=== PATIENT | female | born 2000 | race African-American/Black ===

== ENCOUNTER 2020-03-27 22:30 | Emergency (ER) | payer SELFPAY ==
[~2020-03-27] VITALS: Ht 165.1 cm; Wt 50.8 kg
[2020-03-27 22:42] VITALS: BP 110/68
--- NOTE | 2020-03-27 22:44 | NUR ---
ED Nurse Note: Patient walked into ED from home d/t sore throat that radiates to left ear and left head, started 1 week ago. Sore throat aching /. Patient aao x 4 and ambulatory with steady gait. Patient stable upon assessment.
--- NOTE | 2020-03-27 22:50 | NUR ---
ED Nurse Note: ERMD at bedside.
[2020-03-27] MEDS ORDERED: PSEUDOEPHEDRINE60 MG PO (22:57)
[2020-03-27] MEDS ORDERED: ZITHROMAX250 MG ORAL (22:57)
--- NOTE | 2020-03-27 22:58 | Emergency Room Report ---
History of Present Illness General Chief Complaint: Sore Throat Source: Patient Present Illness [facility] This a 19-year-old female with no past medical history patient presents with chief complaint of sore throat and ear pain. Onset for last few days. Has slight cough and congestion. Nose is stuffy. Most her pain is in the left ear and rating to her head and jaw area. Worse with inspiration. Worse with lying flat. Has some chest tightness and shortness of breath because of it. Denies any other complaint. Pain is 7 out of 10. Worse with coughing and swallowing. Better with rest. Allergies: Coded Allergies: No Known Allergies (Unverified , 03/27/20) COVID-19 Screening Contact w/high risk pt: No Recent Travel to affected area: No Experienced COVID-19 symptoms?: No Patient History Past Medical History: see triage record, old chart reviewed Past Surgical History: none Pertinent Family History: none Social History: Denies: smoking Last Menstrual Period: currently Now: No Immunizations: other Reviewed Nursing Documentation: PMH: Agreed; PSxH: Agreed Nursing Documentation-PMH Past Medical History: No History, Except For Review of Systems Eye: Denies: eye pain, blurred vision ENT: Reports: ear pain, nose congestion; Denies: throat swelling Respiratory: Reports: cough; Denies: shortness of breath Cardiovascular: Denies: chest pain, palpitations Gastrointestinal: Denies: abdominal pain, diarrhea, nausea, vomiting Musculoskeletal: Denies: back pain, joint pain Skin: Denies: rash Neurological: Denies: headache, numbness Endocrine: Denies: increased thirst, increased urine Hematologic/Lymphatic: Denies: easy bruising All Other Systems: negative except mentioned in HPI Physical Exam Vital Signs Date Time Temp Pulse Resp B/P (MAP) Pulse Ox O2 Delivery O2 Flow Rate FiO2 03/27/20 22:33 98.4 74 20 115/70 (85) 96 Room Air Vitals normal Sp02 EP Interpretation: reviewed, normal General Appearance: well appearing, no apparent distress, alert Head: normocephalic, atraumatic Eyes: bilateral eye PERRL, bilateral eye EOMI ENT: hearing grossly normal, normal pharynx, uvula midline - Uvula is enlarged and elongated, other - Left TM is bulging with effusion Neck: full range of motion, supple, no meningismus Respiratory: chest non-tender, lungs clear, normal breath sounds Cardiovascular #1: regular rate, rhythm, no murmur Gastrointestinal: normal bowel sounds, non tender, no mass, no organomegaly, no bruit, non-distended Musculoskeletal: back normal, normal range of motion, gait/station normal Psychiatric: mood/affect normal Medical Decision Making Diagnostic Impression: Primary Impression: Upper respiratory infection, acute Additional Impression: Acute otitis media with effusion of left ear ER Course Patient with an upper respiratory infection with secondary otitis media with effusion. No evidence of any sepsis, pneumonia, ACS, PE, dissection to name a few. She says she is been quarantined by herself for months. Not exposed to anyone with COVID. Last Vital Signs Date Time Temp Pulse Resp B/P (MAP) Pulse Ox O2 Delivery O2 Flow Rate FiO2 03/27/20 22:42 98.4 72 18 110/68 97 Room Air Status: unchanged Disposition: HOME, SELF-CARE Condition: Stable Scripts Azithromycin* (ZITHROMAX*) 250 Mg Tablet 250 MG ORAL DAILY, #6 TAB 0 Refills Take two tables once daily for 1 day, then one tablet once daily for 4 days. Prov: Kapil Aldridge MD 03/27/20 Pseudoephedrine Hcl* (SUDAFED*) 60 Mg Tablet 60 MG PO Q6H, #30 TAB Prov: Kapil Aldridge MD 03/27/20 Additional Instructions: Rest. Increase fluids. Follow-up with your doctor in 7 days if not better. Return if worse. Kapil Aldridge MD Mar 27, 2020 22:57
[2020-03-27 23:02] VITALS: BP 122/70
--- NOTE | 2020-03-27 23:02 | NUR ---
ER DISCHARGE NOTE: Patient is cleared to be discharged per ERMD, pt is aox4, on room air, with stable vital signs. pt was given dc and prescription instructions, pt was able to verbalize understanding, pt id band removed. pt is able to ambulate with steady gait. pt took all belongings. pt stable upon discharge.
[2020-03-27] MEDS ORDERED: Augmentin 875mg Tab ORAL ONE (23:30)
== END 2020-03-27 23:02 | disposition home or self-care (01) ==
LOC: EMR 22:58
DX: J06.9 Acute upper respiratory infection, unspecified (principal); H66.92 Otitis media, unspecified, left ear
CPT/HCPCS: 99282